=== PATIENT | female | born 1965 | race Asian ===

== ENCOUNTER → 2019-07-30 | Outpatient (CLI) | payer BC | LOC: MC.RAD 15:09 | DX: Z12.31 Encounter for screening mammogram for malignant neoplasm of breast (principal) ==

== ENCOUNTER → 2020-09-08 | Outpatient (CLI) | payer BC | LOC: COL.RAD 07:02 | DX: K80.20 Calculus of gallbladder without cholecystitis without obstruction (principal); K76.0 Fatty (change of) liver, not elsewhere classified ==

== ENCOUNTER → 2022-06-14 | Outpatient (CLI) | payer BC | LOC: MC.RAD 15:41 | DX: Z12.31 Encounter for screening mammogram for malignant neoplasm of breast (principal) ==

== ENCOUNTER 2022-06-30 19:28 | Emergency (ER) | payer BC ==
[~2022-06-30] VITALS: Ht 167.6 cm; Wt 63.6 kg
[2022-06-30 19:38] VITALS: TEMP 98.1
[2022-06-30 20:10] LABS: COLLECTION METHOD CLEAN CATCH
[2022-06-30 20:12] LABS: BASO # 0.1 K/mm3 (0.0-0.2); BASO % 0.7 % (0.0-2.0); EOS # 0.1 K/mm3 (0.0-0.7); EOS % 0.8 % (0.0-4.0); GRAN # 4.3 K/mm3 (1.4-6.5); HEMATOCRIT 42.8 % (37.0-47.0); HEMOGLOBIN 15.1 g/dl (12.5-16.0); LYMPH # 3.3 K/mm3 (1.2-3.4); MEAN CELL VOLUME 93 fl (80.0-100.0); MEAN CORPUSCULAR HEMOGLOBIN 33 pg (27-31); MEAN CORPUSCULAR HGB CONC 35 g/dl (33.0-37.0); MEAN PLATELET VOLUME 10.8 fl (7.4-10.4); MONO # 0.5 K/mm3 (0.1-0.6); MONO % 6.4 % (1.7-9.3); PLATELET COUNT 217 K/mm3 (130-400); RED BLOOD COUNT 4.62 M/mm3 (4.10-5.30); REDCELL DISTRIBUTION WIDTH-CV 11.9 % (11.5-14.5)
[2022-06-30 20:21] LABS: URINE APPEARANCE Cloudy (CLEAR/HAZY); URINE COLOR Yellow (YELLOW)
[2022-06-30 20:22] LABS: URINE BLOOD 3+ (NEGATIVE); URINE GLUCOSE Negative (NEGATIVE); URINE KETONE 2+ (NEGATIVE); URINE NITRATE Negative (NEGATIVE); URINE PROTEIN(semi-quant) 1+ (NEGATIVE); URINE UROBILINOGEN 0.2 E.U/dL (0.2-1.0)
[2022-06-30 20:26] LABS: MUCOUS Present (NOT PRESENT); URINE BACTERIA None Seen /hpf (NONE SEEN); URINE RBC >50 /hpf (0-2)
[2022-06-30 20:33] LABS: ALBUMIN 3.8 gm/dL (3.5-5.0); BILIRUBIN,TOTAL 0.4 mg/dL (0.2-1.2); CALCIUM 9.5 mg/dL (8.4-10.2); CREATININE, serum 0.95 mg/dL (0.57-1.11); TOTAL PROTEIN 7.6 gm/dL (6.2-8.1)
[2022-06-30] MEDS ORDERED: FLOMAX 0.40.4 MG/CAP PO (22:28)
[2022-06-30] MEDS ORDERED: NORCO 325 MG-51 TAB PO (22:28)
[2022-06-30] MEDS ORDERED: ZOFRAN ODT4 MG PO (22:28)
[2022-06-30 22:43] VITALS: BP 167/97; PULSE 84
== END 2022-06-30 22:45 | disposition home or self-care (01) ==
LOC: COL.ER 19:28
PROVIDERS: Emergency Medicine
DX: N13.2 Hydronephrosis with renal and ureteral calculous obstruction (principal); R74.01 Elevation of levels of liver transaminase levels; E87.2 Acidosis; Z87.891 Personal history of nicotine dependence
CPT/HCPCS: J1885; J2270; J7120; Q9967

== ENCOUNTER → 2022-07-06 | Outpatient (CLI) | payer BC ==
[~2022-07-06] MED LIST: FLOMAX 0.40.4 MG/CAP PO; NORCO 325 MG-51 TAB PO; ZOFRAN ODT4 MG PO
== END ==
LOC: COL.RAD 07:27
DX: K80.80 Other cholelithiasis without obstruction (principal); N13.30 Unspecified hydronephrosis

== ENCOUNTER 2022-07-31 05:23 | Day surgery (SDC) | payer BC ==
[~2022-07-31] VITALS: Ht 167.6 cm; Wt 74.3 kg
[2022-07-31] MEDS ORDERED: DOXYCYCLINE 10100 MG PO (05:59)
[2022-07-31] MEDS ORDERED: LOTENSIN40 MG PO (05:59)
[2022-07-31 06:14] VITALS: BP 166/90; PULSE 74; TEMP 97.9
[2022-07-31 09:00] VITALS: BP 174/94; PULSE 81; TEMP 97.7
--- NOTE | 2022-07-31 09:00 | NUR ---
PT TO BAY 8 PER CART FROM PACU. REPORT RECEIVED. VS OBTAINED. PT UP TO RESTROOM AND VOIDED WITHOUT DIFFICULTY. CALL LIGHT WITHIN REACH. PT TOLERATING WATER WITHOUT DIFFICULTY.
[2022-07-31 09:15] VITALS: BP 166/82; PULSE 75
[2022-07-31 09:30] VITALS: BP 174/86; PULSE 79
[2022-07-31 09:45] VITALS: BP 160/86; PULSE 73
--- NOTE | 2022-07-31 09:48 | NUR ---
PT RATES PAIN AT 5/10. TORADOL 15MG IV GIVEN AT THIS TIME.
[2022-07-31 10:00] VITALS: BP 159/82; PULSE 74
--- NOTE | 2022-07-31 10:40 | NUR ---
1020-IV DC'D AT THIS TIME. 1030-DISCHARGE EDUCATION COMPLETED WITH PT AND HER . VERBALIZED UNDERSTANDING OF HOME AND FOLLOW UP CARE. ALL QUESTIONS ANSWERED. DISCHARGE PAPERWORK GIVEN TO PT. 1040-PT OFF UNIT PER WHEELCHAIR. PT DISCHARGED TO HOME WITH PER PERSONAL VEHICLE.
== END 2022-07-31 10:40 | disposition home or self-care (01) ==
LOC: SDCO 05:23
DX: N20.1 Calculus of ureter (principal); Z87.891 Personal history of nicotine dependence
CPT/HCPCS: C1769; C2617; J0360; J0690; J1885; J2405; J2704; J3010; J7120